=== PATIENT | female | born 1980 | race African-American/Black ===

== ENCOUNTER 2017-01-07 12:53 | Emergency (ER) | payer OTHER ==
[2017-01-07 11:39] LABS: URINE SOURCE CLEAN CATCH
[2017-01-07 11:43] LABS: URINE APPEARANCE CLEAR; URINE BILIRUBIN NEG (NEG); URINE BLOOD NEG (NEG); URINE COLOR YELLOW; URINE GLUCOSE NEG (NEG); URINE KETONE NEG (NEG); URINE LEUKOCYTE ESTERASE NEG (NEG); URINE NITRATE NEG (NEG); URINE PH 6.5 (5-8); URINE PROTEIN NEG (NEG); URINE SPECIFIC GRAVITY 1.016 (1.003-1.035); URINE UROBILINOGEN 0.2 MG/DL (NEG)
[2017-01-07 11:49] LABS: CULTURE INDICATED? NO
[~2017-01-07 12:53] MED LIST: ALBUTEROL 0.5ML INH; AZITHROMYCIN250 MG PO
== END 2017-01-07 13:34 | disposition home or self-care (01) ==
LOC: CED 12:53
DX: R10.9 Unspecified abdominal pain (principal); M54.9 Dorsalgia, unspecified; F17.210 Nicotine dependence, cigarettes, uncomplicated
CPT/HCPCS: 81003; 96372; 99283; J1885